=== PATIENT | female | born 1930 | race Caucasian/White ===

== ENCOUNTER 2018-06-24 17:30 | Emergency (ER) | payer MEDICARE ==
[~2018-06-24] VITALS: Ht 154.9 cm; Wt 68.2 kg
[~2018-06-24 17:30] MED LIST: ALBUTEROL0.83 MG/ML IH; ASPIRIN 81M81 MG/TA2 PO; ATIVAN 0.50.5 MG/TAB PO; ATROVENTNS0.03% INH; CETAPHIL1 CRE TP; COMBIGAN 0.2%-010 ML; FISH OIL1000 MG PO; FLONASEALLERGY NS; K-DUR 10 MEQ T10 MEQ PO; LASIX 40MG TABL40 MG PO; MULTI VITAMINS1 TAB PO; NITROSTAT0.4 MG/TAB SL; PREDNISONE10 MG PO; PRESERVISION1 SGL PO; RT ADVAIR 528 DISKUS IH; TOPROL XL100 MG PO; TYLENOL 500MG500 MG PO; WELLBUTRIN SR150 M1 PO; ZETIA 10MG TAB10 MG PO; ZITHROMAX 250M250 MG PO; ZOCOR 40MG40 MG PO
[2018-06-24] MEDS ORDERED: WELLBUTRIN SR200 MG PO (17:51)
[2018-06-24] MEDS ORDERED: TOPROL XL 50MG50 MG PO (18:02)
[2018-06-24] MEDS ORDERED: ZETIA 10MG TAB10 MG PO (18:03)
[2018-06-24] MEDS ORDERED: PROBIOTIC FORMU1 CAP PO (18:04)
[2018-06-24 18:18] LABS: HEMATOCRIT 38.6 % (37.0-47.0); HEMOGLOBIN 12.3 g/dl (12.5-16.0); MEAN CELL VOLUME 90 fl (80.0-100.0); MEAN CORPUSCULAR HEMOGLOBIN 29 pg (27.0-31.0); MEAN CORPUSCULAR HGB CONC 32 g/dl (33.0-37.0); PLATELET COUNT 141 K/mm3 (130-400); RED BLOOD COUNT 4.29 M/mm3 (4.10-5.30); REDCELL DISTRIBUTION WIDTH-CV 14.7 % (11.5-14.5)
[2018-06-24 18:25] LABS: INR 1.1 (0.8-3.0); PROTHROMBIN TIME 12.7 SECONDS (9.7-12.8)
[2018-06-24 18:28] LABS: PARTIAL THROMBOPLASTIN TIME 31.5 SECONDS (26.0-37.0)
[2018-06-24 18:30] LABS: ALBUMIN 3.5 gm/dL (3.5-5.0); BILIRUBIN,TOTAL 1.3 mg/dL (0.0-1.0); CALCIUM 9.1 mg/dL (8.4-10.2); CREATININE, serum 0.59 mg/dL (0.52-1.25); POTASSIUM 3.9 mmol/L (3.4-5.0); TOTAL PROTEIN 6.3 gm/dL (6.4-8.2)
[2018-06-24 19:40] LABS: BAND 3 % (0-10); LYMPHOCYTE 16 % (20.0-51.0); NEUTROPHILS 64 % (42.0-75.2); PLATELET ESTIMATE NORMAL (NORMAL)
[2018-06-24 19:41] LABS: OVALOCYTES 1+
[2018-06-24 19:59] VITALS: BP 122/67; PULSE 83; TEMP 98.1
[2018-06-24] MEDS ORDERED: TESSALON P100 MG/CAP PO (20:31)
== END 2018-06-24 20:00 | disposition home or self-care (01) ==
LOC: COL.ER 17:30
PROVIDERS: Emergency Medicine
DX: S30.1XXA Contusion of abdominal wall, initial encounter (principal); I10 Essential (primary) hypertension; E78.5 Hyperlipidemia, unspecified; Z85.3 Personal history of malignant neoplasm of breast; I25.10 Atherosclerotic heart disease of native coronary artery without angina pectoris; Z90.49 Acquired absence of other specified parts of digestive tract; Z90.710 Acquired absence of both cervix and uterus; Z98.890 Other specified postprocedural states; Z79.82 Long term (current) use of aspirin; X58.XXXA Exposure to other specified factors, initial encounter
CPT/HCPCS: Q9967

== ENCOUNTER → 2020-04-11 | Outpatient (CLI) | payer MEDICARE ==
[~2020-04-11] MED LIST changes: +PROBIOTIC FORMU1 CAP PO; +TESSALON P100 MG/CAP PO; +TOPROL XL 50MG50 MG PO; +WELLBUTRIN SR200 MG PO
== END ==
LOC: MC.RAD 10:11
DX: Z12.31 Encounter for screening mammogram for malignant neoplasm of breast (principal); Z98.890 Other specified postprocedural states

== ENCOUNTER 2021-06-18 16:29 | Emergency (ER) | payer MEDICARE, MEDICAID ==
[~2021-06-18] VITALS: Ht 152.4 cm; Wt 65.5 kg
[2021-06-18 17:15] VITALS: TEMP 97.9
[2021-06-18 18:01] LABS: HEMATOCRIT 41.7 % (37.0-47.0); HEMOGLOBIN 12.9 g/dl (12.5-16.0); MEAN CELL VOLUME 89 fl (80.0-100.0); MEAN CORPUSCULAR HEMOGLOBIN 27 pg (27-31); MEAN CORPUSCULAR HGB CONC 31 g/dl (33.0-37.0); MEAN PLATELET VOLUME 10.5 fl (7.4-10.4); PLATELET COUNT 158 K/mm3 (130-400); REDCELL DISTRIBUTION WIDTH-CV 14.3 % (11.5-14.5)
[2021-06-18 18:08] LABS: INR 1.2 (0.8-3.0)
[2021-06-18 18:11] LABS: PARTIAL THROMBOPLASTIN TIME 31.6 SECONDS (26.0-37.0)
[2021-06-18 18:17] LABS: GASTROCCULT POSITIVE
[2021-06-18 18:28] LABS: BAND 10 % (0-10); EOSINOPHIL 1 % (0-4); METAMYELOCYTE 1 % (0-0); NEUTROPHILS 45 % (42.0-75.2); PLATELET ESTIMATE NORMAL (NORMAL)
[2021-06-18 18:29] LABS: LYMPHOCYTE 29 % (20.0-51.0)
[2021-06-18 18:30] LABS: ALANINE AMINOTRANSFERASE 10 U/L (0-55); ALBUMIN 4.1 gm/dL (3.4-4.8); ALKALINE PHOSPHATASE 72 U/L (40-150); ANION GAP 13 mmol/L (7-16); AST,SGOT 18 U/L (5-34); BLOOD UREA NITROGEN 13 mg/dL (10-20); CALCIUM 9.3 mg/dL (8.4-10.2); CARBON DIOXIDE 24 mmol/L (23-31); CHLORIDE 106 mmol/L (98-107); CREATININE, serum 0.83 mg/dL (0.57-1.11); GLUCOSE 99 mg/dL (70-99); SODIUM 143 mmol/L (136-145); TOTAL PROTEIN 6.8 gm/dL (6.2-8.1)
[2021-06-18 18:38] LABS: TROPONIN-I < 0.010 ng/mL (0.00-0.033)
[2021-06-18] MEDS ORDERED: AMOXICILLIN 8751 TAB PO (20:44)
[2021-06-18 20:57] VITALS: BP 140/106; PULSE 79
== END 2021-06-18 20:57 | disposition home or self-care (01) ==
LOC: COL.ER 16:29
PROVIDERS: Physician Assistant
DX: J69.0 Pneumonitis due to inhalation of food and vomit (principal); R04.2 Hemoptysis; J44.9 Chronic obstructive pulmonary disease, unspecified; E78.5 Hyperlipidemia, unspecified; I10 Essential (primary) hypertension; I25.2 Old myocardial infarction; I25.10 Atherosclerotic heart disease of native coronary artery without angina pectoris; Z95.5 Presence of coronary angioplasty implant and graft; Z87.891 Personal history of nicotine dependence; Z79.82 Long term (current) use of aspirin; Z79.51 Long term (current) use of inhaled steroids; Z79.899 Other long term (current) drug therapy

== ENCOUNTER 2021-07-07 09:44 | Inpatient (IN) | payer MEDICARE, MEDICAID ==
[~2021-07-07] VITALS: Ht 152.4 cm; Wt 66.2 kg
[~2021-07-07 09:44] MED LIST changes: +AMOXICILLIN 8751 TAB PO
[2021-07-07 11:20] LABS: HEMATOCRIT 42.4 % (37.0-47.0); HEMOGLOBIN 13.9 g/dl (12.5-16.0); MEAN CELL VOLUME 84 fl (80.0-100.0); MEAN CORPUSCULAR HEMOGLOBIN 27 pg (27-31); MEAN CORPUSCULAR HGB CONC 33 g/dl (33.0-37.0); MEAN PLATELET VOLUME 12.5 fl (7.4-10.4); PLATELET COUNT 196 K/mm3 (130-400); RED BLOOD COUNT 5.07 M/mm3 (4.10-5.30); REDCELL DISTRIBUTION WIDTH-CV 14.5 % (11.5-14.5)
[2021-07-07 11:43] LABS: BAND 9 % (0-10); LYMPHOCYTE 12 % (20.0-51.0); NEUTROPHILS 64 % (42.0-75.2); PLATELET ESTIMATE NORMAL (NORMAL)
[2021-07-07 11:46] LABS: ALBUMIN 3.3 gm/dL (3.4-4.8); BILIRUBIN,TOTAL 1.3 mg/dL (0.2-1.2); C-REACTIVE PROTEIN 4.62 mg/dL (0.00-0.50); CALCIUM 8.4 mg/dL (8.4-10.2); CREATININE, serum 0.68 mg/dL (0.57-1.11); POTASSIUM 3.1 mmol/L (3.5-4.5); TOTAL PROTEIN 6.3 gm/dL (6.2-8.1)
[2021-07-07 11:58] LABS: TROPONIN-I 0.024 ng/mL (0.00-0.033)
[2021-07-07 12:06] LABS: COLLECTION METHOD CLEAN CATCH
[2021-07-07 12:14] LABS: MUCOUS Present (NOT PRESENT); PH 5 (5-8); URINE APPEARANCE Hazy (CLEAR/HAZY); URINE BACTERIA None Seen /hpf (NONE SEEN); URINE BILIRUBIN Negative (NEGATIVE); URINE BLOOD 1+ (NEGATIVE); URINE COLOR Amber (YELLOW); URINE GLUCOSE Negative (NEGATIVE); URINE KETONE 1+ (NEGATIVE); URINE LEUKOCYTE ESTERASE Negative (NEGATIVE); URINE NITRATE Negative (NEGATIVE); URINE PROTEIN(semi-quant) 2+ (NEGATIVE); URINE RBC 0-2 /hpf (0-2); URINE UROBILINOGEN >=4.0 (NEGATIVE)
--- NOTE | 2021-07-07 16:11 | NUR ---
composite layup worker spoke with patient as patient is refusing to be admitted and has COVID. Worker provided answers to patient's questions and support. Patient stated that she would agree to be admitted at this time. Worker spoke with patient's daughter, Fabi and Brittani, who are both on the durable power of disability attorney. Fabi will fax or email a copy of the advance directives. Fabi states that her mother does not have a living will. Fabi states that patient is and has lived in her own home in [place] for 2 years. Fabi states that patient is a very strong and independent woman. Patient will be admitted to the medical covid unit. Patient's primary care provider is Dr Berger and patient gets her medications through [facility]. Brittani's phone number is #[phone]. Fabi's number is [phone].
[2021-07-07 16:31] VITALS: BP 87/50; PULSE 109; TEMP 98.2
[2021-07-07] MEDS ORDERED: ASPIRIN 81M81 MG/TA2 PO (17:27)
[2021-07-07] MEDS ORDERED: ROBITUSSIN DM 105 ML PO (17:29)
[2021-07-07] MEDS ORDERED: TRUSOPT OCUMETE10 ML OU (17:30)
[2021-07-07] MEDS ORDERED: XALATAN EYE DROPS OD (17:31)
--- NOTE | 2021-07-07 18:08 | NUR ---
Pt's daughter and stated KAILEE Batres ([phone]) called and updated on phone. Med Rec completed using pt's meds at bedside and others that were not in pt's bag with daughter. All questions answered. No futher concerns
[2021-07-07 19:30] VITALS: BP 151/78; PULSE 75; TEMP 97.5
[2021-07-07 23:37] VITALS: BP 99/66; PULSE 75; TEMP 97.4
[2021-07-08] VITALS (14 sets, daily range): BP systolic 86–134; BP diastolic 49–93; PULSE 81–133; TEMP 96.6–98.4
[2021-07-08 05:34] LABS: HEMATOCRIT 45.6 % (37.0-47.0); HEMOGLOBIN 14.3 g/dl (12.5-16.0); MEAN CELL VOLUME 87 fl (80.0-100.0); MEAN CORPUSCULAR HEMOGLOBIN 27 pg (27-31); MEAN CORPUSCULAR HGB CONC 31 g/dl (33.0-37.0); MEAN PLATELET VOLUME 12.1 fl (7.4-10.4); PLATELET COUNT 199 K/mm3 (130-400); RED BLOOD COUNT 5.27 M/mm3 (4.10-5.30); REDCELL DISTRIBUTION WIDTH-CV 14.6 % (11.5-14.5)
[2021-07-08 05:50] LABS: CALCIUM 8.1 mg/dL (8.4-10.2); CREATININE, serum 0.64 mg/dL (0.57-1.11); POTASSIUM 3.9 mmol/L (3.5-4.5)
[2021-07-08 06:14] LABS: THYROID STIMULATING HORMONE 0.269 uIU/mL (0.350-4.940)
[2021-07-08 06:41] LABS: BAND 4 % (0-10); LYMPHOCYTE 13 % (20.0-51.0); NEUTROPHILS 78 % (42.0-75.2); PLATELET ESTIMATE NORMAL (NORMAL)
--- NOTE | 2021-07-08 08:45 | NUR ---
ASSESSMENT COMPLETED. PATIENT WAS SITTING ON SIDE OF BED, IN TRIPOD POSITION, IN A-FIB WITH RVR AND SOB. OXYGEN INCREASED VIA NC TO 4LPM TO ASSIST WITH SOB UNTIL CARDIZEM DRIP AND DIGOXIN MEDICATIONS ARRIVED. ASSISTED PATIENT TO BEDSIDE COMMODE AND PATIENT HAD A SMALL LOOSE BM. IV SITE FLUSHED WELL, NO REDNESS OR SWELLING NOTED. LUNG SOUNDS GREATLY DIMINISHED OVERALL AND NOT MUCH AIR MOVEMENT HEARD. WILL CONTINUE TO MONITOR.
--- NOTE | 2021-07-08 17:00 | NUR ---
HELD CARDIZEM DRIP DUE TO HYPOTENSION. BP 80'S OVER 50'S, KAREN OLIVAREZ NOTIFIED AND GIVEN VERBAL TO HOLD FOR NOW, BUT CONTINUE DIG.
--- NOTE | 2021-07-08 20:30 | NUR ---
Call placed to Afshan Garcia re: Afib RVR uncontrolled rate 120-150, NON: Start Cardiazem 2.5ml/hr IV drip, NS @50ml/hr, clarified to give Digoxin in conjunction with Cardiazem. Updated patient on plan of care, 2nd IV started in LFA with 22G- tolerated well, B/P movie machine operator at bedside to closely monitor B/P. Patient asymptomatic, B/P stable, denies pain. Will continue to monitor.
[2021-07-09 00:24] VITALS: BP 113/57; PULSE 98; TEMP 98.1
[2021-07-09 05:15] VITALS: BP 107/56; PULSE 101; TEMP 97.5
--- NOTE | 2021-07-09 05:31 | NUR ---
Patient resting comfortably w/o issue, telemetry in use, call altman w/i reach, alert and oriented, tolerating cardiazem gtt w/o issue, B/P stable, O2@2L per NC in use, denies pain, cough noted, will continue to monitor.
[2021-07-09 06:58] LABS: HEMATOCRIT 43.1 % (37.0-47.0); HEMOGLOBIN 13.9 g/dl (12.5-16.0); MEAN CELL VOLUME 85 fl (80.0-100.0); MEAN CORPUSCULAR HEMOGLOBIN 28 pg (27-31); MEAN CORPUSCULAR HGB CONC 32 g/dl (33.0-37.0); PLATELET COUNT 226 K/mm3 (130-400); RED BLOOD COUNT 5.05 M/mm3 (4.10-5.30); REDCELL DISTRIBUTION WIDTH-CV 14.5 % (11.5-14.5)
[2021-07-09 07:17] LABS: ALBUMIN 2.7 gm/dL (3.4-4.8); BILIRUBIN,TOTAL 0.7 mg/dL (0.2-1.2); CREATININE, serum 0.79 mg/dL (0.57-1.11); POTASSIUM 3.8 mmol/L (3.5-4.5); TOTAL PROTEIN 5.2 gm/dL (6.2-8.1)
[2021-07-09 08:13] LABS: BAND 9 % (0-10); HYPOCHROMIA 1+; LYMPHOCYTE 20 % (20.0-51.0); NEUTROPHILS 64 % (42.0-75.2); PLATELET ESTIMATE NORMAL (NORMAL)
[2021-07-09 08:44] VITALS: BP 113/53; PULSE 55; TEMP 97
--- NOTE | 2021-07-09 09:44 | NUR ---
PT ASSESSED. NO COMPLAINTS OF PAIN OR DYSPNEA. NO SIGNS OR SYMPTOMS OF DISTRESS. CALL LIGHT WITHIN REACH
[2021-07-09 11:25] VITALS: BP 127/59; PULSE 77; TEMP 97.5
[2021-07-09 17:00] VITALS: BP 157/50; PULSE 74; TEMP 98.5
--- NOTE | 2021-07-09 19:34 | NUR ---
Assisted patient from BS to BSC, patient is weak, fatigued and SHOB, O2 increased to 3L, Bilateral lower lung sounds diminished, SPO2@94% with O2@3L per NC, Call placed to Afshan Garcia NON: D/C IV fluids at this time - completed by this nurse, RT at bedside with EKG as ordered, Patient sitting up at bedside, Ongoing monitoring
[2021-07-09 19:57] VITALS: BP 161/64; PULSE 105
[2021-07-09 21:22] LABS: CALCIUM 8.3 mg/dL (8.4-10.2); CREATININE, serum 0.79 mg/dL (0.57-1.11); MAGNESIUM 2.2 mg/dL (1.6-2.6); POTASSIUM 3.8 mmol/L (3.5-4.5)
[2021-07-10 01:15] VITALS: BP 159/72; PULSE 74; TEMP 98.8
--- NOTE | 2021-07-10 01:27 | NUR ---
Patient with confusion noted- requesting to talk to her mother, forgetting she has a munoz catheter- Call placed to Afshan MARC - reviewed CXR, labs, VS and behaviors,- See new orders. Notified RT of STAT AGBS
[2021-07-10 01:56] LABS: COLLECTION METHOD CLEAN CATCH
[2021-07-10 02:14] LABS: MUCOUS Present (NOT PRESENT); PH 5 (5-8); SQUAMOUS EPITHELIAL 0-2 /hpf (0-10); URINE APPEARANCE Hazy (CLEAR/HAZY); URINE BACTERIA Rare /hpf (NONE SEEN); URINE BILIRUBIN Negative (NEGATIVE); URINE BLOOD 1+ (NEGATIVE); URINE COLOR Yellow (YELLOW); URINE GLUCOSE Negative (NEGATIVE); URINE KETONE Trace (NEGATIVE); URINE LEUKOCYTE ESTERASE Negative (NEGATIVE); URINE NITRATE Negative (NEGATIVE); URINE PROTEIN(semi-quant) Negative (NEGATIVE); URINE UROBILINOGEN Negative (NEGATIVE)
[2021-07-10 02:23] LABS: ARTERIAL BLD GAS TCO2 CT 22.5; ARTERIAL BLOOD GAS BASE EXCESS -1.1 (-2-2); ARTERIAL BLOOD GAS HCO3 21.6 meq/L (22-26); ARTERIAL BLOOD GAS PCO2 30.5 mmHg (35-45); ARTERIAL BLOOD GAS PO2 74.1 mmHg (80-100); ARTERIAL BLOOD GAS pH 7.47 (7.35-7.45)
[2021-07-10 05:49] VITALS: BP 141/56; PULSE 90; TEMP 98.8
[2021-07-10 08:32] VITALS: BP 148/70; PULSE 86; TEMP 97.8
--- NOTE | 2021-07-10 09:32 | NUR ---
PT ASSESSED. NO COMPLAINTS OF PAIN OR DYSPNEA. NO SIGNS OR SYMPTOMS OF DISTRESS. CALL LIGHT WITHIN REACH
[2021-07-10 11:28] VITALS: BP 153/82; PULSE 95; TEMP 97.8
--- NOTE | 2021-07-10 13:04 | NUR ---
SW asked the PA for PT/OT to be ordered.
[2021-07-10 16:00] VITALS: BP 170/91; PULSE 91; TEMP 98.1
[2021-07-10 21:32] VITALS: BP 163/82; PULSE 91; TEMP 98.6
--- NOTE | 2021-07-10 22:39 | NUR ---
PT IS SITTING UPRIGHT IN BED, EATING/DRINKING ICE CHIPS AND WATER. PT DENIES PAIN, JUST STATES SHE ISN'T FEELING WELL. PT ASKED FOR MORE ICE CHIPS AND SOME APPLE JUICE. MEDICATIONS GIVEN, ASSESSMENT COMPLETE. 500 ML OF URINE NOTED IN CHRISTIANSEN, DARK JONNATHAN IN COLOR WITH SEDIMENT/ CLOUDINESS NOTED. PT STATED SHE WANTS TO BE AT THE [facility], THIS RN REASSURED PATIENT. THIS RN TALKED TO PATIENT FOR APPROXIMATELY 30 MINUTES ABOUT HOW SHE WAS FEELING AND WHAT PATIENT PRIOR TO SHELTER. 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 PT EXPRESSED GRATITUDE TO THIS RN AND DRANK ALL OF APPLE JUICE AND CONTINUED TO DRINK WATER. THIS RN ENCOURAGED PO INTAKE AND ENCOURAGED PT TO USE CALL LIGHT TO ASK FOR MORE WATER WHEN NEEDED. PT VERBALIZED UNDERSTANDING.
--- NOTE | 2021-07-10 22:46 | NUR ---
PT DAUGHTER CALLED FOR UPDATE, UPDATE GIVEN. PT DAUGHTER SAID SHE WILL TRY TO BRING IN MORE BATTERIES FOR PATIENT'S HEARING AIDS.
[2021-07-11] VITALS (7 sets, daily range): BP systolic 140–165; BP diastolic 63–88; PULSE 73–88; TEMP 97.3–98.4
--- NOTE | 2021-07-11 06:00 | NUR ---
PT HAD UNEVENTFUL NIGHT. PT REMAINS ON 4 L NC. PT DRANK APPLE JUICE PER REQUEST, INCREASED ORAL INTAKE. THIS RN ENCOURAGED CONTINUED INTAKE. PT URINE SLIGHTLY LESS DARK AT 0400 CHECK. WILL PASS TO DAY SHIFT TO KEEP ICE WATER HANDY FOR PATIENT TO ENCOURAGE INTAKE. CALL LIGHT IN REACH.
[2021-07-11 07:58] LABS: HEMATOCRIT 38.6 % (37.0-47.0); HEMOGLOBIN 12.3 g/dl (12.5-16.0); MEAN CELL VOLUME 87 fl (80.0-100.0); MEAN CORPUSCULAR HEMOGLOBIN 28 pg (27-31); MEAN CORPUSCULAR HGB CONC 32 g/dl (33.0-37.0); MEAN PLATELET VOLUME 12.3 fl (7.4-10.4); PLATELET COUNT 195 K/mm3 (130-400); RED BLOOD COUNT 4.46 M/mm3 (4.10-5.30); REDCELL DISTRIBUTION WIDTH-CV 14.5 % (11.5-14.5)
[2021-07-11 08:19] LABS: ALBUMIN 2.9 gm/dL (3.4-4.8); BILIRUBIN,TOTAL 0.8 mg/dL (0.2-1.2); CREATININE, serum 0.68 mg/dL (0.57-1.11); POTASSIUM 3.7 mmol/L (3.5-4.5); TOTAL PROTEIN 5.5 gm/dL (6.2-8.1)
[2021-07-11 09:36] LABS: BAND 7 % (0-10); LYMPHOCYTE 22 % (20.0-51.0); NEUTROPHILS 64 % (42.0-75.2)
[2021-07-11 09:39] LABS: OVALOCYTES 2+; PLATELET ESTIMATE NORMAL (NORMAL)
--- NOTE | 2021-07-11 10:42 | NUR ---
Scheduled medications given. Shift assessment performed. Patient currently requiring 4 L of O2 via nasal cannula. Dyspnea at rest noted. Patient c/o of sore throat. Ice and cold bevevarges encouraged to help alleviate irritation. Ensure watered down and served with ice. Patient able to drink 100%. Patient A&O. Van catheter in place. No kinks in tubing securment device in use. Ouput tea-colored. Patient denies any further pain, discomfort, or futher needs at this time. Call light in reach. Fall percautions in place.
--- NOTE | 2021-07-11 17:39 | NUR ---
PATIENT HAS HAD AN OK DAY. CURRENTLY REQUIRING 4L OF O2 VIA NASAL CANNULA. IV LASIX GIVEN. PATIENT ABLE TO DRINK ENSURE THIS AM WHEN WATERED DOWN. ABLE TO EAT MAGIC CUP WITH MILD ADDED. PATIENT DENIES ANY PAIN, DISCOMFORT, OR FURTHER NEEDS AT THIS TIME. CALL LIGHT IN REACH. FALL PERCAUTIONS IN PLACE. VSS. PATIENT A&O.
--- NOTE | 2021-07-12 03:35 | NUR ---
Rested quietly throught the night, telemetry in use, munzo draining per gravity w/o issue, call altman w/i reach, VS stable, updated on plan of care, no confusion noted, updated daughter Fabi on patient status.
[2021-07-12 04:21] VITALS: BP 152/68; PULSE 72; TEMP 97.5
[2021-07-12 08:30] VITALS: BP 134/62; PULSE 78; TEMP 97.3
[2021-07-12 12:26] VITALS: BP 143/72; PULSE 82; TEMP 99.1
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
[2021-07-12 16:55] VITALS: BP 131/64; PULSE 70; TEMP 97.4
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
[2021-07-12 19:46] VITALS: BP 146/68; PULSE 83; TEMP 98.5
[2021-07-12 23:47] VITALS: BP 145/56; PULSE 71; TEMP 97.8
[2021-07-13 03:49] VITALS: BP 147/60; PULSE 64; TEMP 97.8
--- NOTE | 2021-07-13 05:48 | NUR ---
Rested quietly throughout the shift, VS stable, tolerating IV abt, no c/o at thsi time, updated on plan of care.
[2021-07-13 06:37] LABS: HEMATOCRIT 39.4 % (37.0-47.0); HEMOGLOBIN 12.8 g/dl (12.5-16.0); MEAN CELL VOLUME 85 fl (80.0-100.0); MEAN CORPUSCULAR HEMOGLOBIN 28 pg (27-31); MEAN CORPUSCULAR HGB CONC 33 g/dl (33.0-37.0); MEAN PLATELET VOLUME 12.1 fl (7.4-10.4); PLATELET COUNT 230 K/mm3 (130-400); RED BLOOD COUNT 4.66 M/mm3 (4.10-5.30); REDCELL DISTRIBUTION WIDTH-CV 14.6 % (11.5-14.5)
[2021-07-13 06:53] LABS: ALBUMIN 2.9 gm/dL (3.4-4.8); BILIRUBIN,TOTAL 0.7 mg/dL (0.2-1.2); C-REACTIVE PROTEIN 2.87 mg/dL (0.00-0.50); CALCIUM 9.4 mg/dL (8.4-10.2); CREATININE, serum 0.62 mg/dL (0.57-1.11); POTASSIUM 4.2 mmol/L (3.5-4.5); TOTAL PROTEIN 5.7 gm/dL (6.2-8.1)
[2021-07-13 08:34] VITALS: BP 112/62; PULSE 75; TEMP 97.7
[2021-07-13 12:31] VITALS: BP 110/46; PULSE 67; TEMP 98.8
--- NOTE | 2021-07-13 20:10 | NUR ---
Patient has had an ok day. VSS. Patient A&O. Patient repositioned Q2. Currently on 4L of O2 via nasal cannula. Denies any pain, discomfort, SOA, or futher needs at this time. Dark urine reported to TARI Gilbert. UA collected. Call light in reach. Fall percautions in place.
[2021-07-13 20:31] LABS: COLLECTION METHOD CLEAN CATCH
[2021-07-13 20:41] LABS: BUDDING YEAST Present (NOT PRESENT); PH 6 (5-8); SQUAMOUS EPITHELIAL 0-2 /hpf (0-10); URINE APPEARANCE Cloudy (CLEAR/HAZY); URINE BACTERIA Occasional /hpf (NONE SEEN); URINE BILIRUBIN Negative (NEGATIVE); URINE BLOOD 3+ (NEGATIVE); URINE COLOR Amber (YELLOW); URINE GLUCOSE 2+ (NEGATIVE); URINE KETONE Negative (NEGATIVE); URINE LEUKOCYTE ESTERASE Negative (NEGATIVE); URINE NITRATE Negative (NEGATIVE); URINE PROTEIN(semi-quant) 1+ (NEGATIVE); URINE RBC >50 /hpf (0-2); URINE UROBILINOGEN Negative (NEGATIVE)
[2021-07-13 21:37] VITALS: BP 155/68; PULSE 61; TEMP 98.1
[2021-07-14] VITALS (7 sets, daily range): BP systolic 126–150; BP diastolic 49–70; PULSE 55–61; TEMP 97.6–98.2
--- NOTE | 2021-07-14 03:46 | NUR ---
Rested quietly throughout perioperative manager, telemetry in use, call altman w/i reach, repositioned q 2 hours to offload pressure, updated on plan of care, verbalized understanding, O2@3L per nc in use, munoz draining nelson urine to bag.
[2021-07-14 06:35] LABS: HEMOGLOBIN 11.7 g/dl (12.5-16.0); MEAN CELL VOLUME 86 fl (80.0-100.0); MEAN CORPUSCULAR HEMOGLOBIN 27 pg (27-31); MEAN CORPUSCULAR HGB CONC 32 g/dl (33.0-37.0); MEAN PLATELET VOLUME 11.8 fl (7.4-10.4); PLATELET COUNT 197 K/mm3 (130-400); RED BLOOD COUNT 4.28 M/mm3 (4.10-5.30); REDCELL DISTRIBUTION WIDTH-CV 14.7 % (11.5-14.5)
--- NOTE | 2021-07-14 09:00 | NUR ---
Assessment completed, alert/oriented, vital signs stable, denies pain or discomfort, no resp.difficulty noted at rest, lungs CTA/ diminished bases, heart RRR/ distal pulses are palpable, she is on 4L. o2, morning meds given, she is sitting up in bed and denies other needs at this time, social servies working on discharge planning, IPR vs. SNF
--- NOTE | 2021-07-14 12:51 | NUR ---
Referral made for I[facility]
[2021-07-15 03:13] VITALS: BP 174/80; PULSE 54; TEMP 97.6
[2021-07-15 07:12] LABS: ALBUMIN 2.5 gm/dL (3.4-4.8); BILIRUBIN,TOTAL 0.7 mg/dL (0.2-1.2); CALCIUM 9.3 mg/dL (8.4-10.2); CREATININE, serum 0.61 mg/dL (0.57-1.11); POTASSIUM 4.5 mmol/L (3.5-4.5); TOTAL PROTEIN 5.1 gm/dL (6.2-8.1)
--- NOTE | 2021-07-15 08:04 | NUR ---
Pt. progressing w/ plan of care. Pt. had a bowel movement and pad underneath patient was wet. Lisa care provided and pad changed. Needs addressed. Breakfast ordered. Call light and belongings in reach. Bed alarm on.
--- NOTE | 2021-07-15 08:42 | NUR ---
Attempted to contact patient via room phone with no answer. SNF referrals [facility]ed to [facility].
[2021-07-15 08:47] VITALS: BP 142/66; PULSE 53; TEMP 97.4
--- NOTE | 2021-07-15 09:25 | NUR ---
Initial visit Request; Covered Buckle Assembler sent Prayer card with Housekeeping to patient's room letting her know she is in Covered Buckle Assembler's prayers along with Covered Buckle Assembler's phone number should patient want to visit with Covered Buckle Assembler.
--- NOTE | 2021-07-15 11:37 | NUR ---
[facility] declines patinet
--- NOTE | 2021-07-15 11:52 | NUR ---
Pt.'s urine is dark today. Dr. Nieto in to round and notified. New orders obtained. Pt.'s needs addressed, call light and belongings in reach.
--- NOTE | 2021-07-15 13:24 | NUR ---
grout worker spoke with patient's daughter, Fabi, and provided an update on our efforts to place patient in a retirement facility. Worker advised that at this time, the medical team recommends patient transfer to a retirement facility so that patient could receive physical therapy daily as opposed to home health at this time. Worker advised that [facility] and that [facility] and [facility] to screen patient. Worker will request that physician call Fabi, per Fabi's request.
--- NOTE | 2021-07-15 13:40 | NUR ---
bake room worker gave a referral to [facility] and asked Dr Nieto to call the daughter, Fabi.
[2021-07-15 13:42] VITALS: BP 151/66; PULSE 59; TEMP 97.4
--- NOTE | 2021-07-15 14:11 | NUR ---
[facility] declines at this time.
[2021-07-15 16:58] VITALS: BP 158/72; PULSE 57; TEMP 97.3
--- NOTE | 2021-07-15 17:48 | NUR ---
Pt. progressing w/ plan of care. Pt. sitting upright in bed eating dinner. Pt. worked with therapy today and did fair. New orders from Dr. Nieto obtained pt. to receive nystatin medication for thrush in mouth. Needs addressed, call light and belongings in reach.
[2021-07-15 19:24] VITALS: BP 157/65; PULSE 55; TEMP 98
[2021-07-16] VITALS (7 sets, daily range): BP systolic 133–158; BP diastolic 54–64; PULSE 52–108; TEMP 97.4–98.3
--- NOTE | 2021-07-16 03:06 | NUR ---
Patient rested quietly throughout the shift, encouraging movement, sitting up, getting up to bsc, patient is fatigued and shob noted on exertion, O2@4L per NC, no desating noted with movment, drinking ensure with medications to encourage intake, munoz draining tea colored urine per gravity, updated on plan of care, VS stable, will continue to monitor.
--- NOTE | 2021-07-16 03:30 | NUR ---
Patient c/o burning and pressure with munoz catheter, Call placed to Afshna MARC - NON: D/C munoz. Updated patient on plan of care, Munoz removed w/o issue- patient reported relief
[2021-07-16 07:11] LABS: CALCIUM 9.5 mg/dL (8.4-10.2); CREATININE, serum 0.61 mg/dL (0.57-1.11); POTASSIUM 4.8 mmol/L (3.5-4.5)
[2021-07-16 07:32] LABS: HEMATOCRIT 43.2 % (37.0-47.0); HEMOGLOBIN 13.4 g/dl (12.5-16.0); MEAN CELL VOLUME 87 fl (80.0-100.0); MEAN CORPUSCULAR HEMOGLOBIN 27 pg (27-31); MEAN CORPUSCULAR HGB CONC 31 g/dl (33.0-37.0); MEAN PLATELET VOLUME 11.9 fl (7.4-10.4); PLATELET COUNT 223 K/mm3 (130-400); RED BLOOD COUNT 4.97 M/mm3 (4.10-5.30); REDCELL DISTRIBUTION WIDTH-CV 14.6 % (11.5-14.5)
--- NOTE | 2021-07-16 08:40 | NUR ---
AM assessment complete. Pt. denies needs at this time, currently waiting for breakfast to arrive. Call light and belongings in reach, bed alarm on.
--- NOTE | 2021-07-16 11:35 | NUR ---
Pt. progressing w/ plan of care. Pt. had a bowel movement this AM. Pt. was reporting pain to tailbone area around 1045am, pt. assisted OOB to the chair with a cushion underneath buttocks. Chair alarm on. Call light and belongings in reach. Pt.'s daughter Fabi called to inquire how pt. was doing. Pt. remains on O2 3L, sat WNL.
--- NOTE | 2021-07-16 12:43 | NUR ---
[facility] is following this patient but is unable to accept at this time due to staffing shortages and acceptance of other patients before her. [facility] and [facility] declines at this time. [facility] still clinically reviewing this patient.
--- NOTE | 2021-07-16 15:14 | NUR ---
Pt.'s positive test is from 07/08/21 and the home test pt. did at home cannot be accepted. Pt. must be on precautions until Tuesday. Pt. sitting upright in chair at this time, needs addressed, call light and belongings in reach. Chair alarm on.
--- NOTE | 2021-07-16 15:47 | NUR ---
Pt. remains on O2 4L, sat 92-93%. Pt. has been a stand/pivot transfer to the commode and has been OOB in the chair most of the day. Pt. had a BM and pericare provided. Needs addressed, call light and belongings in reach.
--- NOTE | 2021-07-16 22:40 | NUR ---
Patient assessed around 2100. Alert and oriented x 4, and able to make needs known. Assisted to bedside commode then into bed. Does have SOB with exertion. On oxygen at 4 L/min via NC. Patient voices no questions, needs, or concerns at this time. In bed with call light within reach. Bed alarm on.
[2021-07-17 02:48] VITALS: BP 149/62; PULSE 53; TEMP 97.4
[2021-07-17 04:47] VITALS: BP 132/60; PULSE 49
--- NOTE | 2021-07-17 05:39 | NUR ---
Patient has been resting in bed. Continues on oyxgen at 4 L/min via NC. Voices no questions, needs, or concerns at this time. In bed with call light within reach. Bed alarm on.
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
[2021-07-17 08:43] VITALS: BP 135/71; PULSE 54; TEMP 97.7
[2021-07-17] MEDS ORDERED: LIPITOR20 MG PO (11:29)
[2021-07-17] MEDS ORDERED: ELIQUIS 5MG PO (11:29)
[2021-07-17] MEDS ORDERED: ZESTRIL 10MG10 MG PO (11:30)
[2021-07-17] MEDS ORDERED: TESSALON P100 MG/CAP PO (11:30)
[2021-07-17] MEDS ORDERED: NYSTATIN OR100 MU/ML PO (11:32)
[2021-07-17] MEDS ORDERED: ATIVAN 0.50.5 MG/TAB PO (11:33)
[2021-07-17 11:34] VITALS: BP 139/65; PULSE 56; TEMP 97.9
[2021-07-17] MEDS ORDERED: PACERONE400 MG PO (11:44)
--- NOTE | 2021-07-17 12:14 | NUR ---
[facility] accepts patient for admit today. Discharge orders and patient's DPOA-HC faxed to Jacob at [facility]. Message left for Jacob to arrage a transportation time.
--- NOTE | 2021-07-22 16:38 | NUR ---
wire web worker received phone call from the patients daughter Fabi, with concerns that the patient's life alert and cell phone along with a plant did not make it over to [facility] upon her discharge. Collaborated with the RN who discharged the patient, who states she remembers placing the life alert and patient's phone in her patient belongings bag. The only thing that was left behind was the patient's phone flask pusher which Fabi was notified of, and picked up that night. RN could not remember any plant left in the patient's room. Phone call made to Jacob at [facility] and notified of the above. Asked if his staff can look for the above items. When i checked in with him, he had not heard anything. Fabi contacted and notified that the patient's RN remembers packing up the said items and sending them with her. Confirmed with Fabi that nothing was found in "lost and found". Informed Fabi, that [facility] is needing a new copy of the patients DPOA-HC. Fabi states she is going to go up and see her mother tomorrow and will take a completed copy of the DPOA-HC.
== END 2021-07-17 15:23 | DRG 177 ==
LOC: COL.ER 09:44 → MEDICAL 16:37
PROVIDERS: Internal Medicine; Nurse Practitioner Family; Physician Assistant; ADMIT Internal Medicine
PROC: XW033E5 Introduction of Remdesivir Anti-infective into Peripheral Vein, Percutaneous Approach, New Technology Group 5 (ICD-10-PCS; principal; 2021-07-07)
DX: U07.1 COVID-19 (principal); J12.82 Pneumonia due to coronavirus disease 2019; J96.01 Acute respiratory failure with hypoxia; A41.9 Sepsis, unspecified organism; N39.0 Urinary tract infection, site not specified; J44.9 Chronic obstructive pulmonary disease, unspecified; I10 Essential (primary) hypertension; F41.9 Anxiety disorder, unspecified; E78.00 Pure hypercholesterolemia, unspecified; M19.90 Unspecified osteoarthritis, unspecified site; I48.91 Unspecified atrial fibrillation; E87.6 Hypokalemia; I25.10 Atherosclerotic heart disease of native coronary artery without angina pectoris; D72.829 Elevated white blood cell count, unspecified; T38.0X5A Adverse effect of glucocorticoids and synthetic analogues, initial encounter; B96.89 Other specified bacterial agents as the cause of diseases classified elsewhere; B37.9 Candidiasis, unspecified; Z96.653 Presence of artificial knee joint, bilateral; Z96.641 Presence of right artificial hip joint; Z95.5 Presence of coronary angioplasty implant and graft; Z85.3 Personal history of malignant neoplasm of breast; Z85.51 Personal history of malignant neoplasm of bladder; I25.2 Old myocardial infarction; Z79.82 Long term (current) use of aspirin; Z87.891 Personal history of nicotine dependence
CPT/HCPCS: OP; 99223-AI; 99231-AI; 99233-AI; 99239; J0248; J1100; J1160; J1650; J1940; J2704; J7030; J7050; Q9967

== ENCOUNTER → 2021-07-29 | Outpatient (CLI) | payer MEDICARE, MEDICAID ==
[~2021-07-29] MED LIST changes: +ELIQUIS 5MG PO; +LIPITOR20 MG PO; +NYSTATIN OR100 MU/ML PO; +PACERONE400 MG PO; +ROBITUSSIN DM 105 ML PO; +TRUSOPT OCUMETE10 ML OU; +XALATAN EYE DROPS OD; +ZESTRIL 10MG10 MG PO
== END ==
LOC: COL.RAD 13:00
DX: J84.10 Pulmonary fibrosis, unspecified (principal); J98.11 Atelectasis; I51.7 Cardiomegaly; K44.9 Diaphragmatic hernia without obstruction or gangrene; I27.20 Pulmonary hypertension, unspecified; I70.90 Unspecified atherosclerosis
CPT/HCPCS: Q9967

== ENCOUNTER 2021-10-21 15:46 | Emergency (ER) | payer MEDICARE, MEDICAID ==
[~2021-10-21] VITALS: Ht 152.4 cm; Wt 65.0 kg
[2021-10-21 15:50] VITALS: TEMP 97
[2021-10-21 16:31] LABS: MEAN CELL VOLUME 85 fl (80.0-100.0); MEAN CORPUSCULAR HGB CONC 30 g/dl (33.0-37.0); MEAN PLATELET VOLUME 10.7 fl (7.4-10.4); PLATELET COUNT 163 K/mm3 (130-400); RED BLOOD COUNT 3.87 M/mm3 (4.10-5.30); REDCELL DISTRIBUTION WIDTH-CV 15.6 % (11.5-14.5)
[2021-10-21 16:33] LABS: HEMATOCRIT 32.8 % (37.0-47.0); HEMOGLOBIN 9.9 g/dl (12.5-16.0); MEAN CORPUSCULAR HEMOGLOBIN 26 pg (27-31)
[2021-10-21 16:42] LABS: PROTHROMBIN TIME 22.8 SECONDS (9.7-12.8)
[2021-10-21 16:44] LABS: PARTIAL THROMBOPLASTIN TIME 52.1 SECONDS (26.0-37.0)
[2021-10-21 16:46] LABS: ALANINE AMINOTRANSFERASE 14 U/L (0-55); ALBUMIN 3.3 gm/dL (3.4-4.8); ALKALINE PHOSPHATASE 89 U/L (40-150); ANION GAP 9 mmol/L (7-16); AST,SGOT 23 U/L (5-34); BILIRUBIN,TOTAL 0.8 mg/dL (0.2-1.2); BLOOD UREA NITROGEN 11 mg/dL (10-20); CALCIUM 8.7 mg/dL (8.4-10.2); CARBON DIOXIDE 26 mmol/L (23-31); CHLORIDE 108 mmol/L (98-107); CREATININE, serum 0.75 mg/dL (0.57-1.11); GLUCOSE 154 mg/dL (70-99); POTASSIUM 3.7 mmol/L (3.5-4.5); SODIUM 143 mmol/L (136-145); TOTAL PROTEIN 6.2 gm/dL (6.2-8.1)
[2021-10-21 16:52] LABS: TROPONIN-I < 0.010 ng/mL (0.00-0.033)
[2021-10-21 17:09] VITALS: PULSE 64
[2021-10-21 17:16] LABS: ANISOCYTOSIS 1+; BAND 3 % (0-10); LYMPHOCYTE 18 % (20.0-51.0); NEUTROPHILS 74 % (42.0-75.2); PLATELET ESTIMATE NORMAL (NORMAL)
[2021-10-21 17:17] LABS: HYPOCHROMIA 1+; OVALOCYTES 2+
[2021-10-21 17:54] VITALS: BP 147/73
== END 2021-10-21 18:02 | disposition home or self-care (01) ==
LOC: COL.ER 15:46
PROVIDERS: Emergency Medicine
DX: S61.512A Laceration without foreign body of left wrist, initial encounter (principal); S41.111A Laceration without foreign body of right upper arm, initial encounter; S09.90XA Unspecified injury of head, initial encounter; M25.552 Pain in left hip; M25.551 Pain in right hip; I48.91 Unspecified atrial fibrillation; Z87.891 Personal history of nicotine dependence; Z28.310 Unvaccinated for COVID-19; Z79.01 Long term (current) use of anticoagulants; W18.30XA Fall on same level, unspecified, initial encounter; Y92.009 Unspecified place in unspecified non-institutional (private) residence as the place of occurrence of the external cause